=== PATIENT | male | born 1995 | race Caucasian/White ===

== ENCOUNTER 2024-04-26 04:53 | Emergency (ER) | payer SELFPAY ==
[~2024-04-26] VITALS: Ht 172.7 cm; Wt 82.0 kg
[2024-04-26 04:57] VITALS: BP 122/94; PULSE 107; RESP 18; TEMP 98.2; O2SAT 99
== END 2024-04-26 05:30 | disposition left against medical advice (07) ==
LOC: ER 04:53
DX: F10.129 Alcohol abuse with intoxication, unspecified (principal); Z53.21 Procedure and treatment not carried out due to patient leaving prior to being seen by health care provider; Y90.9 Presence of alcohol in blood, level not specified